=== PATIENT | male | born 1995 | race Two or more races ===

== ENCOUNTER 2021-09-11 18:31 | Emergency (ER) | payer OTHER ==
[~2021-09-11] VITALS: Ht 182.9 cm; Wt 90.7 kg
[2021-09-11] MEDS ORDERED: FLOMAX0.4 MG PO (22:02)
[2021-09-11] MEDS ORDERED: KETOROLAC TROME10 MG PO (22:02)
[2021-09-11 22:22] VITALS: BP 150/92
== END 2021-09-11 22:22 | disposition home or self-care (01) ==
LOC: FSED 18:59
DX: R10.9 Unspecified abdominal pain (principal); N20.1 Calculus of ureter; F17.210 Nicotine dependence, cigarettes, uncomplicated
CPT/HCPCS: 74176; 80048; 80076; 81003; 85025; 99284